=== PATIENT | female | born 1990 | race Caucasian/White ===

== ENCOUNTER 2018-04-28 07:30 | Emergency (ER) | payer SELFPAY ==
[2018-04-28] MEDS ORDERED: Sodium Chloride 0.9% 1,000 ML IV SCH (08:00)
[2018-04-28] MEDS ORDERED: Ondansetron 4 MG/2 ML SDV IVPUSH ONE (08:00)
[2018-04-28] MEDS ORDERED: Sodium Chloride 0.9% 10 ML Syringe FLUSH PRN (08:00)
[2018-04-28] MEDS ORDERED: Potassium Chloride 10 MEQ in Premix Bag 1 BAG IV ONE (09:16)
--- NOTE | 2018-04-28 09:23 | EDM.PDOC ---
ED HPI GENERAL MEDICAL PROBLEM - General Chief Complaint: Gastrointestinal Problem Stated Complaint: 9 WEEKS PREG AND VOMITING Time Seen by Provider: 04/28/18 07:54 Source of Information: Reports: Patient, RN Notes Reviewed - History of Present Illness INITIAL COMMENTS - FREE TEXT/NARRATIVE: 27-year-old female comes in with symptoms of nausea vomiting and stating that she is about 9 weeks . At this time she has no major abdominal pain or cramping. No vaginal bleeding or spotting at this time. She states her mouth does feel dry this morning and she does feel somewhat weak and lightheaded when standing or walking. She has been taking some Reglan intermittently to help with the nausea vomiting. - Related Data Allergies Allergy/AdvReac Type Severity Reaction Status Date / Time No Known Allergies Allergy Verified 04/28/18 07:41 Home Meds: Home Meds Metoclopramide [Reglan] 2 tsp PO Q6H 04/28/18 [History] Past Medical History Gastrointestinal History: Reports: Other (See Below) Other Gastrointestinal History: hyperemesis [employer] [employer] History: Reports: Social & Family History - Tobacco Use Smoking Status *Q: Never Smoker - Recreational Drug Use Recreational Drug Use: No ED ROS GENERAL - Review of Systems Review Of Systems: See Below Constitutional: Denies: Fever, Chills, Diaphoresis HEENT: Denies: Throat Pain Respiratory: Denies: Shortness of Breath Cardiovascular: Denies: Chest Pain GI/Abdominal: Reports: Nausea, Vomiting. Denies: Abdominal Pain, Diarrhea Musculoskeletal: Reports: No Symptoms Skin: Reports: No Symptoms Neurological: Reports: Dizziness ED EXAM - Physical Exam Exam: See Below General Appearance: Alert, No Apparent Distress Throat/Mouth: Other (oral mucosa mildly dry) Head: Atraumatic Neck: Supple, Full Range of Motion Respiratory/Chest: No Respiratory Distress, Lungs Clear, Normal Breath Sounds Cardiovascular: Tachycardia GI/Abdominal Exam: Soft, Non-Tender. No: Guarding Extremities: Normal Inspection Neurological: Alert, Oriented, No Motor/Sensory Deficits Skin Exam: Warm, Dry, Normal Color Course - Vital Signs Last Recorded V/S: Last Vital Signs Temp 98.5 F 04/28/18 07:38 Pulse 141 H 04/28/18 07:38 Resp 20 04/28/18 07:38 BP 129/94 H 04/28/18 07:38 Pulse Ox 100 04/28/18 07:38 - Orders/Labs/Meds Orders: Active Orders 24 hr Category Date Time Status Peripheral IV Care [RC] . DIRECTED Care 04/28/18 08:00 Active UA W/MICROSCOPIC [URIN] Stat Lab 04/28/18 09:12 Ordered Potassium Chloride [KCl 10 MEQ in Water 100 ML] 10 meq Med 04/28/18 09:16 Active Premix Bag 1 bag IV ASDIRECTED Sodium Chloride 0.9% [Normal Saline] 1,000 ml Med 04/28/18 08:00 Active IV ONETIME Sodium Chloride 0.9% [Saline Flush] Med 04/28/18 08:00 Active 10 ml FLUSH ASDIRECTED PRN Peripheral IV Insertion Adult [OM.PC] Stat Oth 04/28/18 08:00 Ordered Medication Orders Sodium Chloride (Normal Saline) 1,000 mls @ 999 mls/hr IV ONETIME ARTI Last Admin: 04/28/18 08:07 Dose: 999 mls/hr Potassium Chloride 10 meq/ (Premix) 100 mls @ 50 mls/hr IV ASDIRECTED ONE Stop: 04/28/18 11:15 Last Admin: 04/28/18 09:20 Dose: Not Given Sodium Chloride (Saline Flush) 10 ml FLUSH ASDIRECTED PRN PRN Reason: Keep Vein Open Last Admin: 04/28/18 08:07 Dose: 10 ml Labs: Laboratory Tests 04/28/18 04/28/18 04/28/18 Range/Units 07:50 07:50 07:50 WBC 13.56 H (3.98-10.04) K/mm3 RBC 5.49 H (3.98-5.22) M/mm3 Hgb 15.5 (11.2-15.7) gm/L Hct 44.0 (34.1-44.9) % MCV 80.1 (79.4-94.8) fl MCH 28.2 (25.6-32.2) pg MCHC 35.2 (32.2-35.5) g/dl RDW Std Deviation 37.7 (36.4-46.3) fL Plt Count 317 (182-369) K/mm3 MPV 12.7 H (9.4-12.3) fl Neut % (Auto) 81.0 H (34.0-71.1) % Lymph % (Auto) 10.9 L (19.3-51.7) % [place] % (Auto) 7.3 (4.7-12.5) % Eos % (Auto) 0.3 L (0.7-5.8) Baso % (Auto) 0.1 (0.1-1.2) % Neut # (Auto) 10.97 H (1.56-6.13) K/mm3 Lymph # (Auto) 1.48 (1.18-3.74) K/mm3 [place] # (Auto) 0.99 H (0.24-0.36) K/mm3 Eos # (Auto) 0.04 (0.04-0.36) K/mm3 Baso # (Auto) 0.02 (0.01-0.08) K/mm3 Sodium 136 (136-145) mEq/L Potassium 2.6 L (3.5-5.1) mEq/L Chloride 97 L (98-107) mEq/L Carbon Dioxide 22 (21-32) mEq/L Anion Gap 19.6 H (5-15) BUN 22 H (7-18) mg/dL Creatinine 1.5 H (0.55-1.02) mg/dL Est Cr Clr Drug Dosing 44.95 mL/min Estimated GFR (MDRD) 42 (>60) mL/min BUN/Creatinine Ratio 14.7 (14-18) Glucose 129 H (74-106) mg/dL Calcium 9.3 (8.5-10.1) mg/dL Total Bilirubin 1.2 H (0.2-1.0) mg/dL AST 56 H (15-37) U/L ALT 148 H (14-59) U/L Alkaline Phosphatase 178 H (46-116) U/L Total Protein 9.1 H (6.4-8.2) g/dl Albumin 4.0 (3.4-5.0) g/dl Globulin 5.1 gm/dL Albumin/Globulin Ratio 0.8 L (1-2) HCG, Qual Positive H (NEGATIVE) HCG, Quant 256295.0 mIU/mL Urine Color (Yellow) Urine Appearance (Clear) Urine pH (5.0-8.0) Ur Specific [place] (1.005-1.030) Urine Protein (Negative) Urine Glucose (UA) (Negative) Urine Ketones (Negative) Urine Occult Blood (Negative) Urine Nitrite (Negative) Urine Bilirubin (Negative) Urine Urobilinogen (0.2-1.0) Ur Leukocyte Esterase (Negative) 04/28/18 Range/Units 09:12 WBC (3.98-10.04) K/mm3 RBC (3.98-5.22) M/mm3 Hgb (11.2-15.7) gm/L Hct (34.1-44.9) % MCV (79.4-94.8) fl MCH (25.6-32.2) pg MCHC (32.2-35.5) g/dl RDW Std Deviation (36.4-46.3) fL Plt Count (182-369) K/mm3 MPV (9.4-12.3) fl Neut % (Auto) (34.0-71.1) % Lymph % (Auto) (19.3-51.7) % [place] % (Auto) (4.7-12.5) % Eos % (Auto) (0.7-5.8) Baso % (Auto) (0.1-1.2) % Neut # (Auto) (1.56-6.13) K/mm3 Lymph # (Auto) (1.18-3.74) K/mm3 [place] # (Auto) (0.24-0.36) K/mm3 Eos # (Auto) (0.04-0.36) K/mm3 Baso # (Auto) (0.01-0.08) K/mm3 Sodium (136-145) mEq/L Potassium (3.5-5.1) mEq/L Chloride (98-107) mEq/L Carbon Dioxide (21-32) mEq/L Anion Gap (5-15) BUN (7-18) mg/dL Creatinine (0.55-1.02) mg/dL Est Cr Clr Drug Dosing mL/min Estimated GFR (MDRD) (>60) mL/min BUN/Creatinine Ratio (14-18) Glucose (74-106) mg/dL Calcium (8.5-10.1) mg/dL Total Bilirubin (0.2-1.0) mg/dL AST (15-37) U/L ALT (14-59) U/L Alkaline Phosphatase (46-116) U/L Total Protein (6.4-8.2) g/dl Albumin (3.4-5.0) g/dl Globulin gm/dL Albumin/Globulin Ratio (1-2) HCG, Qual (NEGATIVE) HCG, Quant mIU/mL Urine Color Dark yellow (Yellow) Urine Appearance Turbid H (Clear) Urine pH 7.0 (5.0-8.0) Ur Specific [place] 1.025 (1.005-1.030) Urine Protein 3+ H (Negative) Urine Glucose (UA) Negative (Negative) Urine Ketones 2+ H (Negative) Urine Occult Blood 3+ H (Negative) Urine Nitrite Negative (Negative) Urine Bilirubin 2+ H (Negative) Urine Urobilinogen 1.0 (0.2-1.0) Ur Leukocyte Esterase 3+ H (Negative) Meds: Medications Generic Name Dose Route Start Last Admin Trade Name Freq PRN Reason Stop Dose Admin Sodium Chloride 1,000 mls @ 999 mls/hr 04/28/18 08:00 04/28/18 08:07 Normal Saline IV 999 mls/hr ONETIME ARTI Administration Potassium Chloride 10 meq/ 100 mls @ 50 mls/hr 04/28/18 09:16 04/28/18 09:20 Premix IV 04/28/18 11:15 Not Given ASDIRECTED ONE Sodium Chloride 10 ml 04/28/18 08:00 04/28/18 08:07 Saline Flush FLUSH 10 ml ASDIRECTED PRN Administration Keep Vein Open Discontinued Medications Generic Name Dose Route Start Last Admin Trade Name Freq PRN Reason Stop Dose Admin Ondansetron HCl 4 mg 04/28/18 08:00 04/28/18 08:07 Zofran IVPUSH 04/28/18 08:01 4 mg ONETIME ONE Administration - Re-Assessments/Exams Free Text/Narrative Re-Assessment/Exam: 04/28/18 09:30 potassium came back very low at 2.6. Chemistries did show that she was moderately dehydrated. We have given 1 L of normal saline. I did place an order for IV potassium but then when I went to visit with patient she states "I have to go, my right is coming now". She is refusing to allow us to give the IV potassium or further fluid. She states she will eat bananas to try work on getting that built up. I do now just have the preliminary dipstick on her urine but that is leukocyte positive, nitrite negative. Have encouraged her to work hard to take the antibiotic as prescribed. Discharge instructions as documented. Departure - Departure Time of Disposition: 09:19 Disposition: Home, Self-Care 01 Condition: Fair Clinical Impression: First trimester , Hyperemesis gravidarum, Hypokalemia - Discharge Information Instructions: Hyperemesis Gravidarum, Hypokalemia Referrals: PCP,None [Primary Care Provider] - Forms: ED Department Discharge Additional Instructions: Clear liquids, careful bland diet as tolerated. Continue with Reglan every 6-8 hours as needed for severe nausea or vomiting. Your potassium was very low today at 2.6 with normal range 3.5-5.0. Bananas are a good source of potassium. Try eat at least 2 per day, preferably 3 per day if tolerated. You will be given a list of our [facility] [employer] providers at time of discharge. Call to set up your appointment. Ua does show some evidency of infection. Try hard to take antibiotic as prescribed. Discharge instructions as documented. - My Orders Last 24 Hours: My Active Orders 04/28/18 08:00 Peripheral IV Care [RC] . DIRECTED Sodium Chloride 0.9% [Normal Saline] 1,000 ml IV ONETIME Sodium Chloride 0.9% [Saline Flush] 10 ml FLUSH ASDIRECTED PRN Peripheral IV Insertion Adult [OM.PC] Stat 04/28/18 09:12 UA W/MICROSCOPIC [URIN] Stat 04/28/18 09:16 Potassium Chloride [KCl 10 MEQ in Water 100 ML] 10 meq Premix Bag 1 bag IV ASDIRECTED - Assessment/Plan Last 24 Hours: My Active Orders 04/28/18 08:00 Peripheral IV Care [RC] . DIRECTED Sodium Chloride 0.9% [Normal Saline] 1,000 ml IV ONETIME Sodium Chloride 0.9% [Saline Flush] 10 ml FLUSH ASDIRECTED PRN Peripheral IV Insertion Adult [OM.PC] Stat 04/28/18 09:12 UA W/MICROSCOPIC [URIN] Stat 04/28/18 09:16 Potassium Chloride [KCl 10 MEQ in Water 100 ML] 10 meq Premix Bag 1 bag IV ASDIRECTED
== END 2018-04-28 09:28 | disposition home or self-care (01) ==
LOC: JD.ED 07:30
DX: O21.0 Mild hyperemesis gravidarum (principal); O99.281 Endocrine, nutritional and metabolic diseases complicating pregnancy, first trimester; E87.6 Hypokalemia; Z3A.09 9 weeks gestation of pregnancy
CPT/HCPCS: 36415; 80053; 81001; 84702; 84703; 85025; 96361; 96374; 99284; J2405; J7040; J7050

== ENCOUNTER 2018-05-02 10:25 | Emergency (ER) | payer SELFPAY ==
--- NOTE | 2018-05-02 11:03 | EDM.PDOC ---
ED HPI GENERAL MEDICAL PROBLEM - General Chief Complaint: [employer] C[employer] TE[employer]ER Problem Stated Complaint: 9 WKS PG - VOMITING Time Seen by Provider: 05/02/18 10:36 Source of Information: Reports: Patient, Old Records (ED 04/28/2018) History Limitations: Reports: No Limitations - History of Present Illness INITIAL COMMENTS - FREE TEXT/NARRATIVE: Medical records indicate that the patient was seen in this ED on 04/28/[address] Pablo Haro, with a complaint of being 9 weeks , with nausea and emesis. No abdominal pain or vaginal bleeding. She stated that she felt lightheaded when she stood or walked. She stated that she had been taking Reglan. She was found to be tachycardic with a resting heart rate of 141, although she was not hypotensive. Workup included a CBC, CMP, qualitative and quantitative hCG, and a urinalysis. The patient's potassium returned at significantly depressed at 2.6. Her BUN/Cr were elevated at 22/1.5, and her blood glucose elevated 129. Her quantitative hCG was 176,402. Her urinalysis was remarkable for 3+ protein, 2+ bilirubin, 2+ ketones, 3+ occult blood, and 3 + leukocyte esterase. The microscopic analysis had not returned before the patient decided to leave the ED. Reviewing her urinalysis at this time, she had 20-30 RBCs, too numerous to count WBCs, 10-20 epithelial cells, and many bacteria. Dr. Haro have ordered IV fluid and IV potassium replacement, however, the patient informed Dr. Haro that she had to leave the ED, because her ride was coming, and refused IV potassium chloride and IV fluid. The patient now returns with continuation of her nausea and emesis, stating that she knows that she made a mistake in leaving the ED. She again states that she is about 9 weeks , with LMP 02/20/2018 (10 weeks 2 days by dates), Ab5. The patient states that she recently moved to this area from [place], [place], and that she did not receive obstetric care there, and has not established an [employer] Operator here. The patient states that the Reglan that she has been taking was prescribed by an emergency physician in [place]. - Related Data Allergies Allergy/AdvReac Type Severity Reaction Status Date / Time No Known Allergies Allergy Verified 04/28/18 07:41 Home Meds: Home Meds Metoclopramide [Reglan] 2 tsp PO Q6H PRN 04/28/18 [History] Amoxicillin/Clavulanate K [Augmentin 600-42.9 MG/5 ML Susp] 5 ml PO Q12H #70 ml 05/02/18 [Rx] Ondansetron [Zofran ODT] 1 tab PO Q6H PRN #10 tab.dis 05/02/18 [Rx] Past Medical History [employer] INF[employer] C[employer] TE[employer]ER History: Reports: - Past Surgical History Female Surgical History: Reports: D&C (x 1), Other (See Below) (Cervical biopsy - benign) Social & Family History - Family History Family Medical History: Noncontributory Cardiac: Reports: CAD, High Cholesterol, Hypertension Endocrine/Metabolic: Reports: Diabetes, type II - Tobacco Use Smoking Status *Q: Never Smoker - Caffeine Use Caffeine Use: Reports: Soda - Alcohol Use Alcohol Use History: No - Recreational Drug Use Recreational Drug Use: Yes Recreational Drug Type: Reports: Marijuana/Hashish (does not recall last time smoked) - Living Situation & Occupation Living situation: Reports: , Other (With friends) Occupation: Unemployed ED ROS GENERAL - Review of Systems Review Of Systems: ROS reveals no pertinent complaints other than HPI. ED EXAM - Physical Exam Exam: See Below Exam Limited By: No Limitations General Appearance: Alert, WD/WN, No Apparent Distress Eye Exam: Bilateral Eye: EOMI, Normal Inspection Ears: Normal External Exam, Hearing Grossly Normal Nose: Normal Inspection, No Blood Throat/Mouth: Normal Inspection, Normal Lips, Normal Voice, No Airway Compromise , Other (Poor dentition) Head: Atraumatic, Normocephalic Neck: Normal Inspection, Full Range of Motion Respiratory/Chest: No Respiratory Distress, Lungs Clear, Normal Breath Sounds, No Accessory Muscle Use Cardiovascular: Normal Peripheral Pulses, Regular Rate, Rhythm, No Edema, No Gallop, No JVD, No Murmur, No Rub GI/Abdominal Exam: Normal Bowel Sounds, Soft, Non-Tender, No Organomegaly, No Distention, No Abnormal Bruit, No Mass Rectal Exam: Deferred Back Exam: Normal Inspection, Full Range of Motion. No: CVA Tenderness (L), CVA Tenderness (R) Extremities: Normal Inspection, Normal Range of Motion, No Pedal Edema, Normal Capillary Refill Neurological: Alert, Oriented, Normal Cognition, No Motor/Sensory Deficits Psychiatric: Normal Affect Skin Exam: Warm, Dry, Intact, Normal Color, No Rash Course - Vital Signs Last Recorded V/S: Last Vital Signs Temp 36.8 C 05/02/18 10:34 Pulse 116 H 05/02/18 10:34 Resp 20 05/02/18 10:34 BP 108/74 05/02/18 10:34 Pulse Ox 98 05/02/18 10:34 Orthostatic Blood Pressure [ 117/68 Standing] Orthostatic Blood Pressure [ 114/70 Sitting] Orthostatic Blood Pressure [ 113/67 Supine] - Orders/Labs/Meds Orders: Active Orders 24 hr Category Date Time Status Orthostatic Vital Signs [RC] STAT Care 05/02/18 10:58 Active Orthostatic Vital Signs [RC] STAT Care 05/02/18 15:00 Active CULTURE URINE [RM] Stat Lab 05/02/18 11:05 Received DRUG SCREEN, URINE [URCHEM] Stat Lab 05/02/18 11:05 Ordered UA W/MICROSCOPIC [URIN] Stat Lab 05/02/18 11:05 Ordered Sodium Chloride 0.9% [Normal Saline] 1,000 ml Med 05/02/18 12:45 Active IV ASDIRECTED Medication Orders Sodium Chloride (Normal Saline) 1,000 mls @ 500 mls/hr IV ASDIRECTED ARTI Last Admin: 05/02/18 12:49 Dose: 500 mls/hr Labs: Laboratory Tests 05/02/18 05/02/18 05/02/18 Range/Units 10:40 10:40 11:05 WBC 10.82 H (3.98-10.04) K/mm3 RBC 5.79 H (3.98-5.22) M/mm3 Hgb 16.1 H (11.2-15.7) gm/L Hct 46.2 H (34.1-44.9) % MCV 79.8 (79.4-94.8) fl MCH 27.8 (25.6-32.2) pg MCHC 34.8 (32.2-35.5) g/dl RDW Std Deviation 37.1 (36.4-46.3) fL Plt Count 332 (182-369) K/mm3 MPV 13.5 H (9.4-12.3) fl Neutrophils % (Manual) 78 H (40-60) % Band Neutrophils % 1 (0-10) % Lymphocytes % (Manual) 12 L (20-40) % Atypical Lymphs % 0 % Monocytes % (Manual) 8 (2-10) % Eosinophils % (Manual) 0 L (0.7-5.8) % Basophils % (Manual) 1 (0.1-1.2) Platelet Estimate Adequate RBC Morph Comment Normal Sodium 134 L (136-145) mEq/L Potassium 2.7 L (3.5-5.1) mEq/L Chloride 89 L (98-107) mEq/L Carbon Dioxide 28 (21-32) mEq/L Anion Gap 19.7 H (5-15) BUN 28 H (7-18) mg/dL Creatinine 1.6 H (0.55-1.02) mg/dL Est Cr Clr Drug Dosing 42.14 mL/min Estimated GFR (MDRD) 39 (>60) mL/min BUN/Creatinine Ratio 17.5 (14-18) Glucose 135 H (74-106) mg/dL Calcium 10.0 (8.5-10.1) mg/dL Magnesium 2.9 H (1.8-2.4) mg/dl Total Bilirubin 3.2 H (0.2-1.0) mg/dL AST 119 H (15-37) U/L ALT 269 H (14-59) U/L Alkaline Phosphatase 199 H (46-116) U/L Total Protein 9.5 H (6.4-8.2) g/dl Albumin 3.9 (3.4-5.0) g/dl Globulin 5.6 gm/dL Albumin/Globulin Ratio 0.7 L (1-2) Urine Color Brown H (Yellow) Urine Appearance Turbid H (Clear) Urine pH 6.0 (5.0-8.0) Ur Specific Brea 1.025 (1.005-1.030) Urine Protein 3+ H (Negative) Urine Glucose (UA) Trace H (Negative) Urine Ketones 2+ H (Negative) Urine Occult Blood 3+ H (Negative) Urine Nitrite Negative (Negative) Urine Bilirubin 3+ H (Negative) Urine Urobilinogen 4.0 H (0.2-1.0) Ur Leukocyte Esterase 3+ H (Negative) Urine RBC >100 H (0-5) /hpf Urine WBC Too numerous to cnt H (0-5) /hpf Ur Epithelial Cells 0-5 (0-5) /hpf Urine Bacteria Moderate H (FEW) /hpf Urine Mucus Not seen (FEW) /hpf Urine Opiates Screen (NEGATIVE) Ur Buprenorphine Scrn (NEGATIVE) Ur Oxycodone Screen (NEGATIVE) Urine Methadone Screen (NEGATIVE) Ur Propoxyphene Screen (NEGATIVE) Ur Barbiturates Screen (NEGATIVE) Ur Tricyclics Screen (NEGATIVE) Ur Phencyclidine Scrn (NEGATIVE) Ur Amphetamine Screen (NEGATIVE) U Methamphetamines Scrn (NEGATIVE) U Benzodiazepines Scrn (NEGATIVE) U Cocaine Metab Screen (NEGATIVE) U Marijuana (THC) Screen (NEGATIVE) 05/02/18 05/02/18 05/02/18 Range/Units 11:05 14:00 18:10 WBC (3.98-10.04) K/mm3 RBC (3.98-5.22) M/mm3 Hgb (11.2-15.7) gm/L Hct (34.1-44.9) % MCV (79.4-94.8) fl MCH (25.6-32.2) pg MCHC (32.2-35.5) g/dl RDW Std Deviation (36.4-46.3) fL Plt Count (182-369) K/mm3 MPV (9.4-12.3) fl Neutrophils % (Manual) (40-60) % Band Neutrophils % (0-10) % Lymphocytes % (Manual) (20-40) % Atypical Lymphs % % Monocytes % (Manual) (2-10) % Eosinophils % (Manual) (0.7-5.8) % Basophils % (Manual) (0.1-1.2) Platelet Estimate RBC Morph Comment Sodium 137 (136-145) mEq/L Potassium 3.1 L 3.4 L (3.5-5.1) mEq/L Chloride 99 (98-107) mEq/L Carbon Dioxide 26 (21-32) mEq/L Anion Gap 15.1 H (5-15) BUN 23 H (7-18) mg/dL Creatinine 1.3 H (0.55-1.02) mg/dL Est Cr Clr Drug Dosing 51.87 mL/min Estimated GFR (MDRD) 50 (>60) mL/min BUN/Creatinine Ratio 17.7 (14-18) Glucose 112 H (74-106) mg/dL Calcium 8.3 L (8.5-10.1) mg/dL Magnesium (1.8-2.4) mg/dl Total Bilirubin (0.2-1.0) mg/dL AST (15-37) U/L ALT (14-59) U/L Alkaline Phosphatase (46-116) U/L Total Protein (6.4-8.2) g/dl Albumin (3.4-5.0) g/dl Globulin gm/dL Albumin/Globulin Ratio (1-2) Urine Color (Yellow) Urine Appearance (Clear) Urine pH (5.0-8.0) Ur Specific Brea (1.005-1.030) Urine Protein (Negative) Urine Glucose (UA) (Negative) Urine Ketones (Negative) Urine Occult Blood (Negative) Urine Nitrite (Negative) Urine Bilirubin (Negative) Urine Urobilinogen (0.2-1.0) Ur Leukocyte Esterase (Negative) Urine RBC (0-5) /hpf Urine WBC (0-5) /hpf Ur Epithelial Cells (0-5) /hpf Urine Bacteria (FEW) /hpf Urine Mucus (FEW) /hpf Urine Opiates Screen Negative (NEGATIVE) Ur Buprenorphine Scrn Negative (NEGATIVE) Ur Oxycodone Screen Negative (NEGATIVE) Urine Methadone Screen Negative (NEGATIVE) Ur Propoxyphene Screen Negative (NEGATIVE) Ur Barbiturates Screen Negative (NEGATIVE) Ur Tricyclics Screen Negative (NEGATIVE) Ur Phencyclidine Scrn Negative (NEGATIVE) Ur Amphetamine Screen Negative (NEGATIVE) U Methamphetamines Scrn Negative (NEGATIVE) U Benzodiazepines Scrn Negative (NEGATIVE) U Cocaine Metab Screen Negative (NEGATIVE) U Marijuana (THC) Screen Presumptive positive H (NEGATIVE) Meds: Medications Generic Name Dose Route Start Last Admin Trade Name Freq PRN Reason Stop Dose Admin Sodium Chloride 1,000 mls @ 500 mls/hr 05/02/18 12:45 05/02/18 12:49 Normal Saline IV 500 mls/hr ASDIRECTED ARTI Administration Discontinued Medications Generic Name Dose Route Start Last Admin Trade Name Freq PRN Reason Stop Dose Admin Amoxicillin/Clavulanate Potassium 600 mg 05/02/18 12:17 05/02/18 12:41 Augmentin 600-42.9 Mg/5 Ml Susp PO 05/02/18 12:18 5 ml ONETIME STA Administration Sodium Chloride 1,000 mls @ 999 mls/hr 05/02/18 11:24 05/02/18 11:31 Normal Saline IV 05/02/18 12:24 999 mls/hr ONETIME ONE Administration Sodium Chloride 1,000 mls @ 999 mls/hr 05/02/18 15:10 05/02/18 15:25 Normal Saline IV 05/02/18 16:10 999 mls/hr ONETIME ONE Administration Ondansetron HCl 4 mg 05/02/18 11:24 05/02/18 11:31 Zofran Odt PO 05/02/18 11:25 4 mg ONETIME ONE Administration Ondansetron HCl 4 mg 05/02/18 15:30 05/02/18 15:40 Zofran IVPUSH 05/02/18 15:31 4 mg ONETIME ONE Administration Potassium Chloride 40 meq 05/02/18 11:31 05/02/18 12:28 Klor-Con M20 PO 05/02/18 11:32 Not Given ONETIME STA Potassium Chloride 40 meq 05/02/18 12:15 05/02/18 12:24 Potassium Chloride Solution PO 05/02/18 12:16 40 meq ONETIME STA Administration Potassium Chloride 40 meq 05/02/18 15:02 05/02/18 15:28 Potassium Chloride PO 05/02/18 15:03 Not Given ONETIME STA Potassium Chloride 40 meq 05/02/18 15:20 05/02/18 15:25 Potassium Chloride Solution PO 05/02/18 15:21 40 meq ONETIME STA Administration - Re-Assessments/Exams Free Text/Narrative Re-Assessment/Exam: 05/02/18 11:25 It is unclear if the patient is orthostatic or not. Her BP did not register when standing, and Jaimie SAN indicated that the patient was not cooperative. I have ordered 1 L IV fluid and 4 mg IV Zofran. 05/02/18 11:31 The patient's potassium has return significantly depressed at 2.7. Her magnesium is high at 2.9. Her BUN/Cr are elevated at 28/1.6. Her blood glucose is mildly elevated at 135. Her total bilirubin, AST, ALT, and alkaline phosphatase are all elevated. I have ordered 40 mg oral potassium, however, if she is not able to keep this down, she will need to have IV replacement, which will require placement into observation. 05/02/18 12:18 Notified by Jaimie SAN that the patient is unable to take pills due to a gag reflex. I switched her oral potassium to an oral solution. The patient's urinalysis is consistent with a UTI. A urine culture has been ordered, and I will start the patient on Augmentin oral suspension in accordance with current guidelines for treatment of a UTI in a woman. She will need to be treated for 7 days. The patient's urine drug screen returned positive for marijuana. 05/02/18 13:43 Notified by Jaimie SAN that the patient has finished the oral potassium liquid. I have ordered a BMP for 14:15. 05/02/18 15:03 The patient's repeat chemistry panel finds her potassium to be up to 3.1, rising by 0.4. She needs another rise of 0.4, therefore I have ordered another 40 mEq of oral potassium solution. The patient has received 2 L of IV fluid. We are rechecking orthostatics. 05/02/18 15:10 The patient is still orthostatic after 2 L of IV fluid. I have ordered a third. 05/02/18 17:03 Following 3 L of IV fluid, the patient is no longer orthostatic. 05/02/18 18:51 Test results discussed with the patient. As above, the patient's hypokalemia has substantially improved, and she is no longer orthostatic. She states that she feels 100% better. I will discharge her home with prescriptions for Augmentin and Zofran. I will refer her to Dr. Capone, who can address not only the patient's hypokalemia, renal insufficiency, and elevated LFTs, but also care for the patient's Obstetric needs. Departure - Departure Time of Disposition: 18:52 Disposition: Home, Self-Care 01 Condition: Good Clinical Impression: Nausea & vomiting, Orthostasis, UTI (urinary tract infection), Hypokalemia, Renal insufficiency, Elevated LFTs, - Discharge Information *PRESCRIPTION DRUG MONITORING PROGRAM REVIEWED*: Not Applicable *COPY OF PRESCRIPTION DRUG MONITORING REPORT IN PATIENT BEST: Not Applicable Prescriptions: Amoxicillin/Clavulanate K [Augmentin 600-42.9 MG/5 ML Susp] 5 ml PO Q12H #70 ml Ondansetron [Zofran ODT] 1 tab PO Q6H PRN #10 tab.dis PRN Reason: Nausea/Vomiting Referrals: PCP,None [Primary Care Provider] - Alesia Capone MD [Physician] - Forms: ED Department Discharge Additional Instructions: You were seen in the emergency room for nausea, vomiting, with previously diagnosed hypokalemia and renal insufficiency. Workup in the ER included blood work, a urinalysis, a urine drug screen, and positional blood pressure checks. You were found to be significantly volume depleted. You received 3 L of IV fluid in the ER, which corrected your volume depletion. Your potassium was found to be very low at 2.7. You received a total of 40 mEq of oral potassium, which raised it to 3.4. Your kidney function was found to be impaired. This improved with IV fluid, but will need time to completely correct. You were found to have a urinary tract infection. You have been started on the antibiotic Augmentin. A prescription for Augmentin has been provided to you. Take 5 mL every 12 hours, starting tomorrow morning, 05/03/2018, as prescribed. Finish the entire prescription unless told otherwise by a doctor. A sample of your urine has been sent for culture. Results should be available by 05/05/2018 or 05/06/2018. Your liver enzymes were found to be elevated. The cause is not known, but further evaluation is needed. A prescription for the anti-nausea medicine Zofran has been provided. Dissolve 1 tablet on your tongue up to every 8 hours, as needed for nausea/vomiting. Stay well hydrated. Gatorade or Powerade are best. Please follow-up with Dr. Alesia Capone as a primary care physician, not only to check on your potassium, kidney function, and liver function, but also to check on your urine culture results, and to manage your obstetric care. If any other problems, please do not hesitate to return to the ER. Contact [facility] [place]: [address] [place] [address] - My Orders Last 24 Hours: My Active Orders 05/02/18 10:58 Orthostatic Vital Signs [RC] STAT 05/02/18 11:05 CULTURE URINE [RM] Stat DRUG SCREEN, URINE [URCHEM] Stat UA W/MICROSCOPIC [URIN] Stat 05/02/18 12:45 Sodium Chloride 0.9% [Normal Saline] 1,000 ml IV ASDIRECTED 05/02/18 15:00 Orthostatic Vital Signs [RC] STAT - Assessment/Plan Last 24 Hours: My Active Orders 05/02/18 10:58 Orthostatic Vital Signs [RC] STAT 05/02/18 11:05 CULTURE URINE [RM] Stat DRUG SCREEN, URINE [URCHEM] Stat UA W/MICROSCOPIC [URIN] Stat 05/02/18 12:45 Sodium Chloride 0.9% [Normal Saline] 1,000 ml IV ASDIRECTED 05/02/18 15:00 Orthostatic Vital Signs [RC] STAT
[2018-05-02] MEDS ORDERED: Sodium Chloride 0.9% 1,000 ML IV ONE ×2 (11:24→15:10)
[2018-05-02] MEDS ORDERED: Ondansetron 4 MG Tab.DIS PO ONE (11:24)
[2018-05-02] MEDS ORDERED: Potassium Chloride 20 MEQ Tab.ER PO STA (11:31)
[2018-05-02] MEDS ORDERED: Potassium Chloride 10% 20 MEQ/15 ML Soln 30 ML UD Cup PO STA ×2 (11:55→15:02)
[2018-05-02] MEDS ORDERED: Potassium Chloride 10% 20 MEQ/15 ML Soln 15 ML UD Cup PO STA ×2 (12:15→15:20)
[2018-05-02] MEDS ORDERED: Amoxicillin/Clavulanate K 600-42.9 MG/5 ML Susp 125 ML Bottle PO STA (12:17)
[2018-05-02] MEDS ORDERED: Sodium Chloride 0.9% 1,000 ML IV SCH (12:45)
[2018-05-02] MEDS ORDERED: Ondansetron 4 MG/2 ML SDV IVPUSH ONE (15:30)
== END 2018-05-02 19:20 | disposition home or self-care (01) ==
LOC: JD.ED 10:25
DX: O23.41 Unspecified infection of urinary tract in pregnancy, first trimester (principal); O99.411 Diseases of the circulatory system complicating pregnancy, first trimester; I95.1 Orthostatic hypotension; O99.211 Obesity complicating pregnancy, first trimester; E87.6 Hypokalemia; N28.9 Disorder of kidney and ureter, unspecified; O21.9 Vomiting of pregnancy, unspecified; O99.89 Other specified diseases and conditions complicating pregnancy, childbirth and the puerperium; R79.89 Other specified abnormal findings of blood chemistry; Z3A.09 9 weeks gestation of pregnancy
CPT/HCPCS: 36415; 80048; 80053; 80306; 81001; 83735; 84132; 85007; 85027; 87086; 87088; 87186; 96361; 96374; 99284; A9270; J2405; J7040

== ENCOUNTER 2018-05-15 08:23 | Emergency (ER) | payer SELFPAY ==
[2018-05-15] MEDS ORDERED: Sodium Chloride 0.9% 10 ML Syringe FLUSH PRN (08:57)
[2018-05-15] MEDS ORDERED: Sodium Chloride 0.9% 2,000 ML IV STA (08:57)
[2018-05-15] MEDS ORDERED: Ondansetron 4 MG/2 ML SDV IVPUSH ONE (08:57)
--- NOTE | 2018-05-15 11:55 | EDM.PDOC ---
ED HPI GENERAL MEDICAL PROBLEM - General Chief Complaint: Gastrointestinal Problem Stated Complaint: VOMITING Time Seen by Provider: 05/15/18 08:45 Source of Information: Reports: Patient History Limitations: Reports: No Limitations - History of Present Illness INITIAL COMMENTS - FREE TEXT/NARRATIVE: The patient presents with nausea and vomiting. She is 12 weeks with a LNMP of February 20. She is . She has had many miscarriages. She has been having nausea and vomiting with this . She was seen here and given zofran. She ran out. She has no abdominal pain. She has no cramping, bleeding or discharge. She has no dysuria or hematuria. Dr Capone is her OB doctor. She has not seen her yet. Onset: Gradual Duration: Day(s): Severity: Moderate Improves with: Reports: None Worsens with: Reports: None Associated Symptoms: Reports: Nausea/Vomiting. Denies: Chest Pain, Cough, Fever /Chills, Headaches, Shortness of Breath - Related Data Allergies Allergy/AdvReac Type Severity Reaction Status Date / Time strawberry Allergy Rash Verified 05/15/18 08:45 Home Meds: Home Meds Ondansetron [Zofran ODT] 1 tab PO Q6H PRN #10 tab.dis 05/02/18 [Rx] Nitrofurantoin Monohyd/M-Cryst [Macrobid 100 mg Capsule] 100 mg PO BID #10 capsule 05/15/18 [Rx] Ondansetron [Zofran ODT] 4 mg PO Q6H PRN #20 tab.dis 05/15/18 [Rx] Past Medical History Gastrointestinal History: Reports: Other (See Below) Other Gastrointestinal History: hyperemesis Genitourinary History: Reports: 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, 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: Psychiatric History: Reports: Anxiety - Past Surgical History Female Surgical History: Reports: D&C Social & Family History - Family History Family Medical History: Noncontributory Cardiac: Reports: CAD, High Cholesterol, Hypertension Endocrine/Metabolic: Reports: Diabetes, type II - Tobacco Use Smoking Status *Q: Never Smoker - Caffeine Use Caffeine Use: Reports: None - Recreational Drug Use Recreational Drug Use: No - Living Situation & Occupation Living situation: Reports: , Other (With friends) Occupation: Unemployed ED ROS GENERAL - Review of Systems Review Of Systems: See Below Constitutional: Reports: No Symptoms HEENT: Reports: No Symptoms Respiratory: Reports: No Symptoms Cardiovascular: Reports: No Symptoms Endocrine: Reports: No Symptoms GI/Abdominal: Reports: Nausea, Vomiting. Denies: Abdominal Pain, Diarrhea : Reports: No Symptoms ED EXAM - Physical Exam Exam: See Below Exam Limited By: No Limitations General Appearance: Alert, No Apparent Distress Ears: Normal External Exam Nose: Normal Inspection Head: Atraumatic, Normocephalic Neck: Normal Inspection Respiratory/Chest: No Respiratory Distress, Lungs Clear, Normal Breath Sounds Cardiovascular: Regular Rate, Rhythm, No Edema, No Murmur GI/Abdominal Exam: Soft, Non-Tender, No Organomegaly Course - Vital Signs Last Recorded V/S: Last Vital Signs Temp 97.4 F 05/15/18 08:40 Pulse 113 H 05/15/18 08:40 Resp 13 05/15/18 08:40 BP 121/59 L 05/15/18 08:40 Pulse Ox 100 05/15/18 08:40 Orthostatic Blood Pressure [ 117/70 Standing] Orthostatic Blood Pressure [ 113/71 Sitting] Orthostatic Blood Pressure [ 112/70 Supine] - Orders/Labs/Meds Orders: Active Orders 24 hr Category Date Time Status Peripheral IV Care [RC] . DIRECTED Care 05/15/18 08:57 Active UA W/MICROSCOPIC [URIN] Stat Lab 05/15/18 10:34 Ordered Sodium Chloride 0.9% [Saline Flush] Med 05/15/18 08:57 Active 10 ml FLUSH ASDIRECTED PRN ED Antiemetic Medication Reflex [OM.PC] Stat Oth 05/15/18 08:57 Ordered Peripheral IV Insertion Adult [OM.PC] Stat Oth 05/15/18 08:57 Ordered Medication Orders Sodium Chloride (Saline Flush) 10 ml FLUSH ASDIRECTED PRN PRN Reason: Keep Vein Open Last Admin: 05/15/18 09:15 Dose: 10 ml Labs: Laboratory Tests 05/15/18 05/15/18 05/15/18 Range/Units 09:15 09:15 10:34 WBC 11.92 H (3.98-10.04) K/mm3 RBC 5.29 H (3.98-5.22) M/mm3 Hgb 15.0 (11.2-15.7) gm/L Hct 42.5 (34.1-44.9) % MCV 80.3 (79.4-94.8) fl MCH 28.4 (25.6-32.2) pg MCHC 35.3 (32.2-35.5) g/dl RDW Std Deviation 37.7 (36.4-46.3) fL Plt Count 336 (182-369) K/mm3 MPV 11.6 (9.4-12.3) fl Neut % (Auto) 81.6 H (34.0-71.1) % Lymph % (Auto) 12.1 L (19.3-51.7) % Kin[place] % (Auto) 5.5 (4.7-12.5) % Eos % (Auto) 0.2 L (0.7-5.8) Baso % (Auto) 0.2 (0.1-1.2) % Neut # (Auto) 9.74 H (1.56-6.13) K/mm3 Lymph # (Auto) 1.44 (1.18-3.74) K/mm3 [place] # (Auto) 0.65 H (0.24-0.36) K/mm3 Eos # (Auto) 0.02 L (0.04-0.36) K/mm3 Baso # (Auto) 0.02 (0.01-0.08) K/mm3 Sodium 135 L (136-145) mEq/L Potassium 3.3 L (3.5-5.1) mEq/L Chloride 98 (98-107) mEq/L Carbon Dioxide 16 L (21-32) mEq/L Anion Gap 24.3 H (5-15) BUN 12 (7-18) mg/dL Creatinine 1.1 H (0.55-1.02) mg/dL Est Cr Clr Drug Dosing 61.30 mL/min Estimated GFR (MDRD) > 60 (>60) mL/min BUN/Creatinine Ratio 10.9 L (14-18) Glucose 108 H (74-106) mg/dL Calcium 10.0 (8.5-10.1) mg/dL Total Bilirubin 1.7 H (0.2-1.0) mg/dL AST 35 (15-37) U/L ALT 72 H (14-59) U/L Alkaline Phosphatase 156 H (46-116) U/L Total Protein 8.8 H (6.4-8.2) g/dl Albumin 3.8 (3.4-5.0) g/dl Globulin 5.0 gm/dL Albumin/Globulin Ratio 0.8 L (1-2) Lipase 325 (73-393) U/L Urine Color Yellow (Yellow) Urine Appearance Slt cloudy H (Clear) Urine pH 6.0 (5.0-8.0) Ur Specific [place] > or = 1.030 (1.005-1.030) Urine Protein 3+ H (Negative) Urine Glucose (UA) Negative (Negative) Urine Ketones 3+ H (Negative) Urine Occult Blood 3+ H (Negative) Urine Nitrite Negative (Negative) Urine Bilirubin 2+ H (Negative) Urine Urobilinogen 2.0 H (0.2-1.0) Ur Leukocyte Esterase 3+ H (Negative) Urine RBC 5-10 H (0-5) /hpf Urine WBC Too numerous to cnt H (0-5) /hpf Ur Epithelial Cells 0-5 (0-5) /hpf Urine Bacteria Few (FEW) /hpf Urine Mucus Few (FEW) /hpf Meds: Medications Generic Name Dose Route Start Last Admin Trade Name Freq PRN Reason Stop Dose Admin Sodium Chloride 10 ml 05/15/18 08:57 05/15/18 09:15 Saline Flush FLUSH 10 ml ASDIRECTED PRN Administration Keep Vein Open Discontinued Medications Generic Name Dose Route Start Last Admin Trade Name Freq PRN Reason Stop Dose Admin Sodium Chloride 2,000 mls @ 1,000 mls/hr 05/15/18 08:57 05/15/18 09:15 Normal Saline IV 05/15/18 10:56 1,000 mls/hr .BOLUS STA Administration Ondansetron HCl 4 mg 05/15/18 08:57 05/15/18 09:15 Zofran IVPUSH 05/15/18 08:58 4 mg ONETIME ONE Administration - Re-Assessments/Exams Free Text/Narrative Re-Assessment/Exam: 05/15/18 11:53 I ordered 2L of NS, labs, UA and zofran 4mg IV. Her WBC was slightly elevated at 11.92. Her Hgb was elevated at 15. Her sodium was 135. Her K was a little low at 3.3 but improved from the last 2 visits. Her creatinine was elevated slightly at 1.1. Her Total bili was elevated at 1.7 but improved from the other visits. Her ALT was elevated at 72. Her Alk Phos was elevated at 156. Her lipase was normal. Her UA shows a UTI. She does feel better. I will give her a prescription for zofran and get her on some macrobid. Departure - Departure Time of Disposition: 11:55 Disposition: Home, Self-Care 01 Condition: Good Clinical Impression: First trimester , Hyperemesis gravidarum UTI (urinary tract infection) Qualifiers: Urinary tract infection type: site unspecified Hematuria presence: without hematuria Qualified Code(s): N39.0 - Urinary tract infection, site not specified Nausea & vomiting Qualifiers: Vomiting type: unspecified Vomiting Intractability: non-intractable Qualified Code(s): R11.2 - Nausea with vomiting, unspecified - Discharge Information *PRESCRIPTION DRUG MONITORING PROGRAM REVIEWED*: No *COPY OF PRESCRIPTION DRUG MONITORING REPORT IN PATIENT BEST: No Prescriptions: Nitrofurantoin Monohyd/M-Cryst [Macrobid 100 mg Capsule] 100 mg PO BID #10 capsule Ondansetron [Zofran ODT] 4 mg PO Q6H PRN #20 tab.dis PRN Reason: Nausea\vomiting Referrals: Alesia Capone MD [Primary Care Provider] - 1 Week Additional Instructions: Drink plenty of fluids. Take the macrobid 2 times per day for 5 days. Take the zofran every 6 hours as needed for nausea and vomiting. Follow up with Dr Capone early next week. Please return if you are worse. - My Orders Last 24 Hours: My Active Orders 05/15/18 08:57 Peripheral IV Care [RC] . DIRECTED Sodium Chloride 0.9% [Saline Flush] 10 ml FLUSH ASDIRECTED PRN ED Antiemetic Medication Reflex [OM.PC] Stat Peripheral IV Insertion Adult [OM.PC] Stat 05/15/18 10:34 UA W/MICROSCOPIC [URIN] Stat - Assessment/Plan Last 24 Hours: My Active Orders 05/15/18 08:57 Peripheral IV Care [RC] . DIRECTED Sodium Chloride 0.9% [Saline Flush] 10 ml FLUSH ASDIRECTED PRN ED Antiemetic Medication Reflex [OM.PC] Stat Peripheral IV Insertion Adult [OM.PC] Stat 08/30/18 10:34 UA W/MICROSCOPIC [URIN] Stat
== END 2018-05-15 12:20 | disposition home or self-care (01) ==
LOC: JD.ED 08:23
DX: O23.41 Unspecified infection of urinary tract in pregnancy, first trimester (principal); Z3A.12 12 weeks gestation of pregnancy; Z91.018 Allergy to other foods
CPT/HCPCS: 36415; 80053; 81001; 83690; 85025; 96361; 96374; 99284; J2405; J7040; J7050

== ENCOUNTER 2018-05-19 09:21 | Emergency (ER) | payer SELFPAY ==
[2018-05-19] MEDS ORDERED: Ondansetron 4 MG/2 ML SDV IVPUSH ONE (09:51)
[2018-05-19] MEDS ORDERED: Sodium Chloride 0.9% 2,000 ML IV STA (09:51)
[2018-05-19] MEDS ORDERED: Sodium Chloride 0.9% 10 ML Syringe FLUSH PRN (09:51)
--- NOTE | 2018-05-19 13:28 | EDM.PDOC ---
ED HPI GENERAL MEDICAL PROBLEM - General Chief Complaint: Gastrointestinal Problem Stated Complaint: VOMITING Time Seen by Provider: 05/19/18 09:29 Source of Information: Reports: Patient History Limitations: Reports: No Limitations - History of Present Illness INITIAL COMMENTS - FREE TEXT/NARRATIVE: The patient presents with nausea and vomiting and she is 12 weeks . She has a LNMP of February 20. She is . She has no cramping or spotting. This has been a problem with all of her pregnancies but this nausea and vomiting is lasting longer. She has no pain but she cannot keep anything down. She has no fever or chills. She has no dysuria. She has been here about 4 times and she was found to have a UTI. She is having a hard time keeping her antibiotic down. Onset: Gradual Duration: Week(s): Severity: Moderate Improves with: Reports: None Worsens with: Reports: None Associated Symptoms: Reports: Nausea/Vomiting. Denies: Chest Pain, Cough, Fever /Chills, Headaches, Loss of Appetite, Shortness of Breath - Related Data Allergies Allergy/AdvReac Type Severity Reaction Status Date / Time strawberry Allergy Rash Verified 05/19/18 09:32 Home Meds: Home Meds Ondansetron [Zofran ODT] 1 tab PO Q6H PRN #10 tab.dis 05/02/18 [Rx] Nitrofurantoin Monohyd/M-Cryst [Macrobid 100 mg Capsule] 100 mg PO BID #10 capsule 05/15/18 [Rx] Potassium Chloride 20 meq PO DAILY #300 ml 05/19/18 [Rx] Past Medical History - Past Health History Medical/Surgical History: Denies Medical/Surgical History Gastrointestinal History: Reports: Other (See Below) Other Gastrointestinal History: hyperemesis Genitourinary History: Reports: UTI, 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: Psychiatric History: Reports: Anxiety - Past Surgical History Female Surgical History: Reports: D&C Social & Family History - Family History Family Medical History: Noncontributory Cardiac: Reports: CAD, High Cholesterol, Hypertension Endocrine/Metabolic: Reports: Diabetes, type II - Tobacco Use Smoking Status *Q: Never Smoker - Caffeine Use Caffeine Use: Reports: None - Recreational Drug Use Recreational Drug Use: No - Living Situation & Occupation Living situation: Reports: , Other (With friends) Occupation: Unemployed ED ROS GENERAL - Review of Systems Review Of Systems: See Below Constitutional: Reports: No Symptoms HEENT: Reports: No Symptoms Respiratory: Reports: No Symptoms Cardiovascular: Reports: No Symptoms Endocrine: Reports: No Symptoms GI/Abdominal: Reports: Nausea, Vomiting. Denies: Abdominal Pain : Reports: No Symptoms Musculoskeletal: Reports: No Symptoms Skin: Reports: No Symptoms ED EXAM - Physical Exam Exam: See Below Exam Limited By: No Limitations General Appearance: Alert, No Apparent Distress Ears: Normal External Exam Nose: Normal Inspection Head: Atraumatic, Normocephalic Neck: Normal Inspection Respiratory/Chest: No Respiratory Distress, Lungs Clear, Normal Breath Sounds Cardiovascular: Regular Rate, Rhythm, No Edema, No Murmur GI/Abdominal Exam: Soft, Non-Tender, Other (gravid uterus above the pubic symphysis) Course - Vital Signs Last Recorded V/S: Last Vital Signs Temp 97.8 F 05/19/18 09:28 Pulse 120 H 05/19/18 09:28 Resp 18 05/19/18 09:28 BP 128/103 H 05/19/18 09:28 Pulse Ox 99 05/19/18 09:28 - Orders/Labs/Meds Orders: Active Orders 24 hr Category Date Time Status Peripheral IV Care [RC] . DIRECTED Care 05/19/18 09:52 Active OB 1st Tri Sgl 1st Gest [US] Stat Exams 05/19/18 11:22 Taken UA W/MICROSCOPIC [URIN] Stat Lab 05/19/18 12:40 Ordered Sodium Chloride 0.9% [Saline Flush] Med 05/19/18 09:51 Active 10 ml FLUSH ASDIRECTED PRN ED Antiemetic Medication Reflex [OM.PC] Stat Oth 05/19/18 09:52 Ordered Peripheral IV Insertion Adult [OM.PC] Stat Oth 05/19/18 09:51 Ordered Medication Orders Sodium Chloride (Saline Flush) 10 ml FLUSH ASDIRECTED PRN PRN Reason: Keep Vein Open Last Admin: 05/19/18 10:23 Dose: 10 ml Labs: Laboratory Tests 05/19/18 05/19/18 05/19/18 Range/Units 10:13 10:13 10:13 WBC 9.51 (3.98-10.04) K/mm3 RBC 5.32 H (3.98-5.22) M/mm3 Hgb 15.1 (11.2-15.7) gm/L Hct 41.7 (34.1-44.9) % MCV 78.4 L (79.4-94.8) fl MCH 28.4 (25.6-32.2) pg MCHC 36.2 H (32.2-35.5) g/dl RDW Std Deviation 38.7 (36.4-46.3) fL Plt Count 301 (182-369) K/mm3 MPV 12.7 H (9.4-12.3) fl Neut % (Auto) 79.2 H (34.0-71.1) % Lymph % (Auto) 14.9 L (19.3-51.7) % [place]ron % (Auto) 5.3 (4.7-12.5) % Eos % (Auto) 0.2 L (0.7-5.8) Baso % (Auto) 0.2 (0.1-1.2) % Neut # (Auto) 7.53 H (1.56-6.13) K/mm3 Lymph # (Auto) 1.42 (1.18-3.74) K/mm3 [place] # (Auto) 0.50 H (0.24-0.36) K/mm3 Eos # (Auto) 0.02 L (0.04-0.36) K/mm3 Baso # (Auto) 0.02 (0.01-0.08) K/mm3 Sodium 140 (136-145) mEq/L Potassium 2.9 L (3.5-5.1) mEq/L Chloride 102 (98-107) mEq/L Carbon Dioxide 19 L (21-32) mEq/L Anion Gap 21.9 H (5-15) BUN 10 (7-18) mg/dL Creatinine 0.9 (0.55-1.02) mg/dL Est Cr Clr Drug Dosing 74.92 mL/min Estimated GFR (MDRD) > 60 (>60) mL/min BUN/Creatinine Ratio 11.1 L (14-18) Glucose 125 H (74-106) mg/dL Calcium 10.0 (8.5-10.1) mg/dL Total Bilirubin 1.3 H (0.2-1.0) mg/dL AST 32 (15-37) U/L ALT 74 H (14-59) U/L Alkaline Phosphatase 161 H (46-116) U/L Total Protein 8.4 H (6.4-8.2) g/dl Albumin 3.5 (3.4-5.0) g/dl Globulin 4.9 gm/dL Albumin/Globulin Ratio 0.7 L (1-2) Lipase 339 (73-393) U/L HCG, Quant 25964.0 mIU/mL Urine Color (Yellow) Urine Appearance (Clear) Urine pH (5.0-8.0) Ur Specific [place] (1.005-1.030) Urine Protein (Negative) Urine Glucose (UA) (Negative) Urine Ketones (Negative) Urine Occult Blood (Negative) Urine Nitrite (Negative) Urine Bilirubin (Negative) Urine Urobilinogen (0.2-1.0) Ur Leukocyte Esterase (Negative) Urine RBC (0-5) /hpf Urine WBC (0-5) /hpf Ur Epithelial Cells (0-5) /hpf Urine Bacteria (FEW) /hpf Urine Mucus (FEW) /hpf 05/19/18 Range/Units 12:40 WBC (3.98-10.04) K/mm3 RBC (3.98-5.22) M/mm3 Hgb (11.2-15.7) gm/L Hct (34.1-44.9) % MCV (79.4-94.8) fl MCH (25.6-32.2) pg MCHC (32.2-35.5) g/dl RDW Std Deviation (36.4-46.3) fL Plt Count (182-369) K/mm3 MPV (9.4-12.3) fl Neut % (Auto) (34.0-71.1) % Lymph % (Auto) (19.3-51.7) % Barron % (Auto) (4.7-12.5) % Eos % (Auto) (0.7-5.8) Baso % (Auto) (0.1-1.2) % Neut # (Auto) (1.56-6.13) K/mm3 Lymph # (Auto) (1.18-3.74) K/mm3 [place]ron # (Auto) (0.24-0.36) K/mm3 Eos # (Auto) (0.04-0.36) K/mm3 Baso # (Auto) (0.01-0.08) K/mm3 Sodium (136-145) mEq/L Potassium (3.5-5.1) mEq/L Chloride (98-107) mEq/L Carbon Dioxide (21-32) mEq/L Anion Gap (5-15) BUN (7-18) mg/dL Creatinine (0.55-1.02) mg/dL Est Cr Clr Drug Dosing mL/min Estimated GFR (MDRD) (>60) mL/min BUN/Creatinine Ratio (14-18) Glucose (74-106) mg/dL Calcium (8.5-10.1) mg/dL Total Bilirubin (0.2-1.0) mg/dL AST (15-37) U/L ALT (14-59) U/L Alkaline Phosphatase (46-116) U/L Total Protein (6.4-8.2) g/dl Albumin (3.4-5.0) g/dl Globulin gm/dL Albumin/Globulin Ratio (1-2) Lipase (73-393) U/L HCG, Quant mIU/mL Urine Color [place] H (Yellow) Urine Appearance Clear (Clear) Urine pH 6.5 (5.0-8.0) Ur Specific [place] 1.025 (1.005-1.030) Urine Protein 3+ H (Negative) Urine Glucose (UA) Negative (Negative) Urine Ketones 4+ H (Negative) Urine Occult Blood 2+ H (Negative) Urine Nitrite Negative (Negative) Urine Bilirubin 2+ H (Negative) Urine Urobilinogen 4.0 H (0.2-1.0) Ur Leukocyte Esterase 3+ H (Negative) Urine RBC 10-20 H (0-5) /hpf Urine WBC 40-50 H (0-5) /hpf Ur Epithelial Cells 0-5 (0-5) /hpf Urine Bacteria Few (FEW) /hpf Urine Mucus Few (FEW) /hpf Meds: Medications Generic Name Dose Route Start Last Admin Trade Name Freq PRN Reason Stop Dose Admin Sodium Chloride 10 ml 05/19/18 09:51 05/19/18 10:23 Saline Flush FLUSH 10 ml ASDIRECTED PRN Administration Keep Vein Open Discontinued Medications Generic Name Dose Route Start Last Admin Trade Name Freq PRN Reason Stop Dose Admin Sodium Chloride 2,000 mls @ 1,000 mls/hr 05/19/18 09:51 05/19/18 11:31 Normal Saline IV 05/19/18 11:50 1,000 mls/hr .BOLUS STA Infusion Ondansetron HCl 4 mg 05/19/18 09:51 05/19/18 10:23 Zofran IVPUSH 05/19/18 09:52 4 mg ONETIME ONE Administration - Re-Assessments/Exams Free Text/Narrative Re-Assessment/Exam: 05/19/18 13:33 I ordered an IV NS 2L bolus, zofran 4mg IV, labs, UA and an US of her pelvis. Her CBC looks good. Her K was low at 2.9. Her anion gap was elevated at 21.9. Her glucose was 125. Her total bili was 1.3. Her ALT was elevated at 74. Her Alk Phos was elevated at 161. Her lipase was normal. Her HCG was 73,366. I initially did a bedside US and I could not see very good. The official US did show a single living IUP. Average crown rump length 5.9cm, corresponding to a gestational age of 11 weeks 6 days with estimated date of delivery of . FHT was 181. She feels better. She does not want any potassium here but she will take a prescription. She will be seeing Dr Capone on Saturday. 05/19/18 13:37 She has an antibiotic at home for her UTI and she has enough zofran. Dr Capone may have a different plan so I will not give her any more. Departure - Departure Time of Disposition: 13:37 Disposition: Home, Self-Care 01 Condition: Good Clinical Impression: Elevated LFTs, Hyperemesis gravidarum, Hypokalemia, First trimester Nausea & vomiting Qualifiers: Vomiting type: unspecified Vomiting Intractability: non-intractable Qualified Code(s): R11.2 - Nausea with vomiting, unspecified UTI (urinary tract infection) Qualifiers: Urinary tract infection type: site unspecified Hematuria presence: without hematuria Qualified Code(s): N39.0 - Urinary tract infection, site not specified - Discharge Information *PRESCRIPTION DRUG MONITORING PROGRAM REVIEWED*: No *COPY OF PRESCRIPTION DRUG MONITORING REPORT IN PATIENT BEST: No Prescriptions: Potassium Chloride 20 meq PO DAILY #300 ml Referrals: PCP,Not In Area [Primary Care Provider] - Alesia Capone MD [Physician] - Forms: ED Department Discharge Additional Instructions: Take your antibiotic as prescribed. Take the zofran as needed for nausea and vomiting. Take the potassium 20meq daily until gone. Follow up with Dr Capone tomorrow. Please return if you are worse. - My Orders Last 24 Hours: My Active Orders 05/19/18 09:51 Sodium Chloride 0.9% [Saline Flush] 10 ml FLUSH ASDIRECTED PRN Peripheral IV Insertion Adult [OM.PC] Stat 05/19/18 09:52 Peripheral IV Care [RC] . DIRECTED ED Antiemetic Medication Reflex [OM.PC] Stat 05/19/18 11:22 OB 1st Tri Sgl 1st Gest [US] Stat 05/19/18 12:40 UA W/MICROSCOPIC [URIN] Stat - Assessment/Plan Last 24 Hours: My Active Orders 05/19/18 09:51 Sodium Chloride 0.9% [Saline Flush] 10 ml FLUSH ASDIRECTED PRN Peripheral IV Insertion Adult [OM.PC] Stat 05/19/18 09:52 Peripheral IV Care [RC] . DIRECTED ED Antiemetic Medication Reflex [OM.PC] Stat 05/19/18 11:22 OB 1st Tri Sgl 1st Gest [US] Stat 05/19/18 12:40 UA W/MICROSCOPIC [URIN] Stat
== END 2018-05-19 13:55 | disposition home or self-care (01) ==
LOC: JD.ED 09:21
DX: O21.0 Mild hyperemesis gravidarum (principal); O23.41 Unspecified infection of urinary tract in pregnancy, first trimester; O99.281 Endocrine, nutritional and metabolic diseases complicating pregnancy, first trimester; E87.6 Hypokalemia; Z3A.12 12 weeks gestation of pregnancy; Z91.018 Allergy to other foods; Z79.899 Other long term (current) drug therapy
CPT/HCPCS: 36415; 76801; 80053; 81001; 83690; 84702; 85025; 96361; 96374; 99284; J2405; J7040; J7050